=== PATIENT | female | born 1945 | race Hispanic/Latino ===

== ENCOUNTER → 2020-07-01 | Day surgery (SDC) | payer OTHER ==
[~2020-07-01] MED LIST: ALLOPURINOL100 MG PO; DIOVAN320 MG PO; FENTANYL CITRATE/PF 100MCG/2 ML INJ ONE; GLIMEPIRIDE2 MG PO; HYDROCHLOROTH12.5 MG PO; IBUPROFEN PO; LIDOCAINE HCL 2% LOCAL INJ 5 ML SDV VIAL INJ ONE; LOSARTAN POTAS100 MG PO; METFORMIN HCL500 MG PO; NIFEDIPINE XL30 MG PO; OMEPRAZOLE20 MG PO; PRAVASTATIN PO; PREVACID15 MG PO; PROPOFOL IV EMULSION 10 MG/ML 20 ML VIAL ONE; TYLENOL PO; [UNRECOGNIZED DRUG - OTHER]
[2020-07-01 06:46] LABS: BASOPHILS # (AUTO) 0.1 (0.0-0.1); BASOPHILS % 0.6 % (0.0-1.0); EOSINOPHILS # (AUTO) 0.1 (0.0-0.4); EOSINOPHILS % 1.5 % (0.0-6.0); HEMATOCRIT 33.2 % (34.2-44.1); HEMOGLOBIN 10.2 g/dL (12.0-16.0); LYMPHOCYTES # (AUTO) 3.3 (1.0-3.2); LYMPHOCYTES % 37.2 % (18.0-39.1); MEAN CORPUSCULAR HEMOGLOBIN 29.7 pg (28-32); MEAN CORPUSCULAR HGB CONC 30.7 g/dL (31-35); MEAN CORPUSCULAR VOLUME 96.5 fL (81-99); MONOCYTES # (AUTO) 0.6 (0.2-0.8); MONOCYTES % 6.9 % (4.4-11.3); NEUTROPHILS # (AUTO) 4.8 (2.1-6.9); NEUTROPHILS % 53.6 % (38.7-80.0); PLATELET COUNT 299 x10e3/uL (140-360); RED BLOOD COUNT 3.44 x10e6/uL (3.6-5.1); RED CELL DISTRIBUTION WIDTH 15.7 % (11.7-14.4)
== END | disposition home or self-care (01) ==
LOC: OR 05:47
PROVIDERS: ATTEND Internal Medicine Gastroenterology
DX: Z12.11 Encounter for screening for malignant neoplasm of colon (principal); K21.00 Gastro-esophageal reflux disease with esophagitis, without bleeding; K44.0 Diaphragmatic hernia with obstruction, without gangrene; K57.30 Diverticulosis of large intestine without perforation or abscess without bleeding; K64.8 Other hemorrhoids; Z71.3 Dietary counseling and surveillance; D50.0 Iron deficiency anemia secondary to blood loss (chronic); E11.9 Type 2 diabetes mellitus without complications; I10 Essential (primary) hypertension; E66.9 Obesity, unspecified; Z01.810 Encounter for preprocedural cardiovascular examination; Z01.812 Encounter for preprocedural laboratory examination; Z20.822 Contact with and (suspected) exposure to COVID-19; Z79.84 Long term (current) use of oral hypoglycemic drugs; Z68.32 Body mass index [BMI] 32.0-32.9, adult
CPT/HCPCS: 43235; G0121; 36415; 45378; 82948; 85025; 93005; J2001; J3010; U0002

== ENCOUNTER 2021-06-04 19:36 | Emergency (ER) | payer MEDICARE, OTHER ==
[~2021-06-04] VITALS: Ht 160 cm; Wt 75.7 kg
[~2021-06-04 19:36] MED LIST changes: -FENTANYL CITRATE/PF 100MCG/2 ML INJ ONE; -LIDOCAINE HCL 2% LOCAL INJ 5 ML SDV VIAL INJ ONE; -PROPOFOL IV EMULSION 10 MG/ML 20 ML VIAL ONE
[2021-06-04] MEDS ORDERED: FAMOTIDINE 20 MG/2 ML VIAL IV STA (20:05)
[2021-06-04] MEDS ORDERED: DONNATAL/LIDOCAINE/MAALOX 30 ML SUSP PO STA (20:13)
[2021-06-04 20:22] LABS: BASOPHILS % 0.3 % (0.0-1.0); EOSINOPHILS % 0.1 % (0.0-6.0); HEMATOCRIT 35.3 % (34.2-44.1); HEMOGLOBIN 11.2 g/dL (12.0-16.0); LYMPHOCYTES # (AUTO) 1.8 (1.0-3.2); LYMPHOCYTES % 13.7 % (18.0-39.1); MEAN CORPUSCULAR HEMOGLOBIN 31.3 pg (28-32); MEAN CORPUSCULAR HGB CONC 31.7 g/dL (31-35); MEAN CORPUSCULAR VOLUME 98.6 fL (81-99); MONOCYTES # (AUTO) 0.4 (0.2-0.8); MONOCYTES % 3.2 % (4.4-11.3); NEUTROPHILS # (AUTO) 10.6 (2.1-6.9); NEUTROPHILS % 82.4 % (38.7-80.0); PLATELET COUNT 237 x10e3/uL (140-360); RED BLOOD COUNT 3.58 x10e6/uL (3.6-5.1)
[2021-06-04] MEDS ORDERED: BELLADONNA ALK/PHENOBARBITAL 5 ML UDC ONE (20:34)
[2021-06-04] MEDS ORDERED: LIDOCAINE VISC 2% SOLN 15 ML UDC ONE (20:34)
[2021-06-04 20:42] LABS: ALBUMIN 4.3 g/dL (3.5-5.0); ANION GAP 17.1 mmol/L (8-16); CREATININE, SERUM 1.09 mg/dL (0.57-1.11); POTASSIUM 4.1 mmol/L (3.5-5.1)
[2021-06-04 20:49] LABS: CREATINE KINASE MB 0.9 ng/mL (0-5.0)
[2021-06-04 21:58] VITALS: BP 186/83
[2021-06-04] MEDS ORDERED: PEPCID20 MG PO (22:03)
[2021-06-04] MEDS ORDERED: ONDANSETRON ODT4 MG PO (22:03)
== END 2021-06-04 22:05 | disposition home or self-care (01) ==
LOC: ER 19:47
DX: R07.89 Other chest pain (principal); R10.13 Epigastric pain; R11.2 Nausea with vomiting, unspecified; E11.65 Type 2 diabetes mellitus with hyperglycemia; I10 Essential (primary) hypertension
CPT/HCPCS: 36415; 71045; 80053; 82550; 82553; 84484; 85025; 93005; 99284

== ENCOUNTER 2025-02-02 10:18 | Inpatient (IN) | payer MEDICARE ==
[2025-01-27 12:16] LABS: BASOPHILS % 0.4 % (0.0-1.0); EOSINOPHILS % 1.1 % (0.0-6.0); LYMPHOCYTES % 16.5 % (18.0-39.1); MONOCYTES % 5.5 % (4.4-11.3); NEUTROPHILS % 76.4 % (38.7-80.0); RED CELL DISTRIBUTION WIDTH 13.1 % (11.7-14.4)
[2025-01-27 12:41] LABS: EST GLOMERULAR FILTRATION RATE 53.0 ML/MIN (>=60)
[2025-02-02] VITALS (8 sets, daily range): BP systolic 114–119; BP diastolic 48–51; PULSE 55–69; RESP 17–18; TEMP 97.9–98.8; O2SAT 98
[~2025-02-02] VITALS: Ht 160 cm; Wt 66.2 kg
[~2025-02-02 10:18] MED LIST changes: +ASPIRIN81 MG PO; +MYRBETRIQ25 MG PO; +ONDANSETRON ODT4 MG PO; +OZEMPIC0.25 MG/02 SC; +PEPCID20 MG PO
[2025-02-02] MEDS ORDERED: ROCURONIUM BROMIDE 1 ML IV ONE (12:54)
[2025-02-02] MEDS ORDERED: ONDANSETRON HCL INJ 2MG/ML 2ML 2 MG/ML VIAL ONE (13:19)
[2025-02-02] MEDS ORDERED: METOCLOPRAMIDE HCL 10 MG/2ML VIAL ONE (13:19)
[2025-02-02] MEDS ORDERED: PHENYLEPHRINE HCL 1% 10 MG/ML VIAL ONE (13:22)
[2025-02-02] MEDS ORDERED: ACETAMINOPHEN 1000 MG/100 ML 100 ML IV ONE (13:35)
[2025-02-02] MEDS: LACTATED RINGER'S 1,000 ML ONE (13:37)
[2025-02-02] MEDS: CLINDAMYCIN 600MG / 50ML 50 ML IV ONE (13:37)
[2025-02-02] MEDS: PIPERACILLIN/TAZOBACTAM 3.375 GM VIAL ONE (13:37)
[2025-02-02] MEDS: GENTAMICIN 80MG/NS 100 ML 200 ML IV ONE (13:37)
[2025-02-02] MEDS ORDERED: EPHEDRINE SULFATE INJ 50 MG/ML VIAL ONE (13:37)
[2025-02-02] MEDS ORDERED: SEVOFLURANE INHAL SOLN 250 ML PEN BTL ONE (14:03)
[2025-02-02] MEDS ORDERED: SUGAMMADEX SODIUM 200 MG/2 ML VIAL IV ONE (14:12)
[2025-02-02] MEDS ORDERED: PHENAZOPYRIDINE HCL 100 MG TAB PO PRN (14:45)
[2025-02-02] MEDS ORDERED: DIPHENHYDRAMINE HCL 25 MG CAP PO PRN (14:45)
[2025-02-02] MEDS ORDERED: ACETAMINOPHEN 1000 MG/100 ML IV PRN (14:45)
[2025-02-02] MEDS ORDERED: ONDANSETRON HCL INJ 2MG/ML 2ML 2 MG/ML VIAL IV PRN (14:45)
[2025-02-02 15:47] LABS: BASOPHILS % 0.4 % (0.0-1.0); EOSINOPHILS % 1.1 % (0.0-6.0); LYMPHOCYTES % 18.2 % (18.0-39.1); MONOCYTES % 5.8 % (4.4-11.3); NEUTROPHILS % 74.3 % (38.7-80.0); RED CELL DISTRIBUTION WIDTH 13.1 % (11.7-14.4)
[2025-02-02 16:08] LABS: EST GLOMERULAR FILTRATION RATE 57.0 ML/MIN (>=60)
[2025-02-02] MEDS: SENNA-S TABLET PO SCH (16:47)
[2025-02-02] MEDS: SODIUM CHLORIDE 0.9% 1000ML 1,000 ML IV SCH (16:47)
[2025-02-02] MEDS: ACETAMINOPHEN/CODEINE 300MG - 30MG TAB PO PRN (18:37)
[2025-02-03] VITALS (9 sets, daily range): BP systolic 116–145; BP diastolic 51–70; PULSE 60–86; RESP 16–19; TEMP 97.4–100.7; O2SAT 97–100
[2025-02-03 05:02] LABS: BASOPHILS % 0.3 % (0.0-1.0); EOSINOPHILS % 0.3 % (0.0-6.0); LYMPHOCYTES % 10.0 % (18.0-39.1); MONOCYTES % 7.2 % (4.4-11.3); NEUTROPHILS % 81.8 % (38.7-80.0); RED CELL DISTRIBUTION WIDTH 13.1 % (11.7-14.4)
[2025-02-03 05:27] LABS: EST GLOMERULAR FILTRATION RATE 63.0 ML/MIN (>=60)
[2025-02-03] MEDS ORDERED: BENZONATATE 100 MG CAP PO PRN (13:30)
[2025-02-03] MEDS ORDERED: LIDOCAINE 4% PATCH TP PRN (13:30)
[2025-02-03] MEDS ORDERED: ALBUTEROL/IPRATROPIUM 3 ML NEB NEB PRN (13:30)
[2025-02-03] MEDS ORDERED: ONDANSETRON HCL INJ 2MG/ML 2ML 2 MG/ML VIAL IV PRN (13:30)
[2025-02-03] MEDS ORDERED: DIPHENHYDRAMINE HCL 25 MG CAP PO PRN (13:30)
[2025-02-03] MEDS ORDERED: DEXTROSE 50% SYRINGE 50 ML IV PRN (13:30)
[2025-02-03] MEDS ORDERED: POTASSIUM CHLORIDE 20 MEQ TAB CR PO PRN (13:30)
[2025-02-03] MEDS ORDERED: HYDRALAZINE HCL 20 MG/ML VIAL IV PRN (13:30)
[2025-02-03] MEDS ORDERED: DOCUSATE SODIUM 100 MG CAP PO PRN (13:30)
[2025-02-03] MEDS ORDERED: ACETAMINOPHEN 325 MG TAB PO PRN (13:30)
[2025-02-03] MEDS ORDERED: MELATONIN 5 MG TABLET PO PRN (21:00)
[2025-02-04] VITALS (10 sets, daily range): BP systolic 128–154; BP diastolic 51–70; PULSE 61–72; RESP 18–19; TEMP 97.9–100.8; O2SAT 95–99
[2025-02-04] MEDS: SENNA-S TABLET PO SCH (09:00)
[2025-02-04] MEDS: PANTOPRAZOLE SOD 40 MG TABEC PO SCH (09:10)
[2025-02-04] MEDS: LOSARTAN POTASSIUM 100 MG TAB PO SCH (09:11)
[2025-02-04] MEDS: ALLOPURINOL 100 MG TAB PO SCH (09:12)
[2025-02-04] MEDS: KETOROLAC TROMETHAMINE 30 MG/ML VIAL IV PRN (14:20)
[2025-02-04 15:19] LABS: BASOPHILS % 0.2 % (0.0-1.0); EOSINOPHILS % 0.2 % (0.0-6.0); LYMPHOCYTES % 7.9 % (18.0-39.1); MONOCYTES % 8.6 % (4.4-11.3); NEUTROPHILS % 82.6 % (38.7-80.0); RED CELL DISTRIBUTION WIDTH 12.9 % (11.7-14.4)
[2025-02-04 15:47] LABS: EST GLOMERULAR FILTRATION RATE 63.0 ML/MIN (>=60)
[2025-02-05] VITALS (9 sets, daily range): BP systolic 126–140; BP diastolic 49–62; PULSE 56–66; RESP 18–19; TEMP 83.2–98.8; O2SAT 96–100
[2025-02-05 05:24] LABS: BASOPHILS % 0.2 % (0.0-1.0); EOSINOPHILS % 2.4 % (0.0-6.0); LYMPHOCYTES % 11.3 % (18.0-39.1); MONOCYTES % 8.3 % (4.4-11.3); NEUTROPHILS % 77.5 % (38.7-80.0); RED CELL DISTRIBUTION WIDTH 13.0 % (11.7-14.4)
[2025-02-05 05:55] LABS: EST GLOMERULAR FILTRATION RATE 48.0 ML/MIN (>=60)
[2025-02-05] MEDS: SODIUM BICARBONATE 650 MG TAB PO SCH (14:19)
[2025-02-06] VITALS (8 sets, daily range): BP systolic 133–166; BP diastolic 56–67; PULSE 51–67; RESP 18–20; TEMP 97.6–98.9; O2SAT 98–100
[2025-02-06 05:15] LABS: BASOPHILS % 0.3 % (0.0-1.0); EOSINOPHILS % 5.0 % (0.0-6.0); LYMPHOCYTES % 21.4 % (18.0-39.1); MONOCYTES % 8.1 % (4.4-11.3); NEUTROPHILS % 64.9 % (38.7-80.0); RED CELL DISTRIBUTION WIDTH 12.9 % (11.7-14.4)
[2025-02-06 05:36] LABS: EST GLOMERULAR FILTRATION RATE 51.0 ML/MIN (>=60)
[2025-02-06] MEDS ORDERED: SODIUM CHLORIDE 0.9% 250ML 250 ML IV ONE (11:00)
[2025-02-06] MEDS: SODIUM CHLORIDE 0.9% 250ML 250 ML ONE (18:47)
[2025-02-07 04:00] VITALS: BP 147/60; PULSE 51; RESP 16; TEMP 98.1; O2SAT 97
[2025-02-07 08:39] VITALS: BP 161/78; PULSE 56; RESP 18; TEMP 97.6; O2SAT 100
[2025-02-07 09:00] VITALS: BP 161/78; PULSE 56; RESP 18; TEMP 97.6; O2SAT 100
[2025-02-07 12:20] VITALS: BP 141/65; PULSE 51; RESP 18; TEMP 98.1; O2SAT 99
[2025-02-07 14:04] VITALS: PULSE 61; RESP 18; O2SAT 98
== END 2025-02-07 15:35 | disposition home or self-care (01) | DRG 748 ==
LOC: OR 10:18 → PACU V 14:44 → MED/SURG 15:52
PROVIDERS: ADMIT Urology; ATTEND Urology
PROC: 0TUD0KZ Supplement Urethra with Nonautologous Tissue Substitute, Open Approach (ICD-10-PCS; 2025-02-02)
PROC: BT141ZZ Fluoroscopy of Kidneys, Ureters and Bladder using Low Osmolar Contrast (ICD-10-PCS; 2025-02-02)
PROC: 0TSD0ZZ Reposition Urethra, Open Approach (ICD-10-PCS; principal; 2025-02-02 13:09)
PROC: 0JUC0KZ Supplement of Pelvic Region Subcutaneous Tissue and Fascia with Nonautologous Tissue Substitute, Open Approach (ICD-10-PCS; 2025-02-02 13:09)
PROC: 30233N1 Transfusion of Nonautologous Red Blood Cells into Peripheral Vein, Percutaneous Approach (ICD-10-PCS; 2025-02-06)
DX: N81.2 Incomplete uterovaginal prolapse (principal); D62 Acute posthemorrhagic anemia; N39.0 Urinary tract infection, site not specified; N17.9 Acute kidney failure, unspecified; N39.46 Mixed incontinence; R39.198 Other difficulties with micturition; R35.1 Nocturia; M75.101 Unspecified rotator cuff tear or rupture of right shoulder, not specified as traumatic; M75.41 Impingement syndrome of right shoulder; M19.011 Primary osteoarthritis, right shoulder; G89.29 Other chronic pain; N95.2 Postmenopausal atrophic vaginitis; R33.9 Retention of urine, unspecified; I10 Essential (primary) hypertension; E78.5 Hyperlipidemia, unspecified; E11.9 Type 2 diabetes mellitus without complications; Z79.85 Long-term (current) use of injectable non-insulin antidiabetic drugs; K21.9 Gastro-esophageal reflux disease without esophagitis; M10.9 Gout, unspecified; F32.A Depression, unspecified; Z79.899 Other long term (current) drug therapy; Z79.82 Long term (current) use of aspirin
CPT/HCPCS: 36415; 71046; 74420; 80048; 82948; 83735; 85014; 85018; 85025; 86850; 86900; 86920; 93005; 94799; C1758; C1762; J1580; J1885; J2371; J2405; J2470; J2543; J2765; J7030; J7050; P9016